=== PATIENT | male | born 1980 ===

== ENCOUNTER 2019-09-16 12:48 | Emergency (ER) | payer OTHER ==
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
[2019-09-16 18:45] VITALS: BP 133/90
== END 2019-09-16 18:34 | disposition home or self-care (01) ==
LOC: ED 12:48
DX: M25.512 Pain in left shoulder (principal); M54.5 Low back pain; F17.200 Nicotine dependence, unspecified, uncomplicated; Z98.890 Other specified postprocedural states